=== PATIENT | male | born 1985 | race Caucasian/White ===

== ENCOUNTER 2021-10-08 04:27 | Emergency (ER) | payer OTHER ==
[~2021-10-08] VITALS: Ht 175.3 cm; Wt 122.5 kg
[2021-10-08 05:00] VITALS: BP_SYST 154
[2021-10-08 08:03] LABS: BASOPHILS # (AUTO) 0.1 K/uL (0.0-0.2); EOSINOPHILS # (AUTO) 0.2 K/uL (0.0-0.4); EOSINOPHILS % (AUTO) 1.7 % (0.0-4.0); HEMATOCRIT 44.7 % (36-54); HEMOGLOBIN 15.4 g/dL (14.0-18.0); LYMPHOCYTES # (AUTO) 1.7 K/uL (1.0-5.5); LYMPHOCYTES % (AUTO) 18.3 % (20.5-51.5); MEAN CORPUSCULAR HEMOGLOBIN 28 pg (27-31); MEAN CORPUSCULAR HGB CONC 34 % (32-36); MEAN CORPUSCULAR VOLUME 82 fL (79.0-98.0); MONOCYTES # (AUTO) 0.6 K/uL (0.0-1.0); MONOCYTES % (AUTO) 6.7 % (1.7-9.3); NEUTROPHILS # (AUTO) 6.6 K/uL (1.8-7.7); NEUTROPHILS % (AUTO) 72.3 % (40.0-70.0); PLATELET COUNT (AUTO) 211 K/uL (130-430); RED BLOOD CELL COUNT(AUTO) 5.46 MIL/uL (4.2-6.2); RED CELL DISTRIBUTION WIDTH 13.4 % (9.0-15.0); WHITE BLOOD COUNT (AUTO) 9.1 K/uL (4.8-10.8)
[2021-10-08 08:56] LABS: CALCIUM 8.3 mg/dL (8.4-11.0); CREATININE 0.5 mg/dL (0.55-1.30); POTASSIUM 4.2 mmol/L (3.5-5.1)
[2021-10-08 09:01] LABS: ALBUMIN 3.5 g/dL (3.4-4.8)
[2021-10-08 09:10] VITALS: BP_SYST 141
[2021-10-08] MEDS ORDERED: IBUP-1971 PO (10:15)
[2021-10-08] MEDS ORDERED: CLINDAMYCIN HCL 150 MG CAPSULE PO ONE (10:15)
[2021-10-08] MEDS ORDERED: CLIN-142 PO (10:15)
[2021-10-08 11:00] LABS: C-REACTIVE PROTEIN QUANT 2.7 mg/dL (0-0.5)
== END 2021-10-08 11:17 | disposition home or self-care (01) ==
LOC: SED 04:27
DX: L03.811 Cellulitis of head [any part, except face] (principal)
CPT/HCPCS: 36415; 80053; 83605; 85025; 86140; 99283